=== PATIENT | female | born 1960 | race Caucasian/White ===

== ENCOUNTER → 2017-05-25 | Outpatient (CLI) | payer BC | END | disposition home or self-care (01) | LOC: CFH 16:04 → EDSTATUS 16:45 | PROVIDERS: ATTEND Nurse Practitioner Primary Care | DX: E55.9 Vitamin D deficiency, unspecified (principal); R31.9 Hematuria, unspecified; R10.9 Unspecified abdominal pain; G47.00 Insomnia, unspecified; L29.9 Pruritus, unspecified; J30.9 Allergic rhinitis, unspecified; R53.83 Other fatigue; R00.2 Palpitations | CPT/HCPCS: 76830 ==